=== PATIENT | female | born 1965 | race Caucasian/White ===

== ENCOUNTER 2018-11-04 18:30 | Inpatient (IN) | payer OTHER ==
[~2018-11-04] VITALS: Ht 160 cm; Wt 105.2 kg
--- NOTE | 2018-11-04 18:53 | NUR ---
PT TO THE FLOOR VIA WHEELCHAIR AND ER STAFF.
[2018-11-04] MEDS ORDERED: POTASSIUM CHLO20 MEQ PO (19:03)
[2018-11-04] MEDS ORDERED: ALDACTONE100 MG PO (19:05)
[2018-11-04] MEDS ORDERED: SYNTHROID75 MCG PO (19:05)
[2018-11-04] MEDS ORDERED: VITAMIN D250000 UNIT PO (19:06)
[2018-11-04] MEDS ORDERED: CLARITIN 10 MG10 MG PO (19:08)
[2018-11-04] MEDS ORDERED: PRINZIDE 20/12.1 TA1 PO (19:08)
--- NOTE | 2018-11-04 19:47 | NUR ---
PATIENT ARRIVED TO FLOOR. PATIENT IS ALERT AND ORIENTED. SITTING UP IN CHAIR. AM SHIFT RN DOING QUICK START AND ATTEMPTING TO START IV. CALL LIGHT WITHIN REACH. WILL CPOC.
[2018-11-04 19:54] LABS: ALBUMIN 3.7 g/dL (3.4-5.0); BILIRUBIN - DIRECT 0.17 mg/dL (0.00-0.30); BILIRUBIN - INDIRECT 0.68 mg/dL (0.00-1.00); BILIRUBIN - TOTAL 0.85 mg/dL (0.2-1.3); PROTEIN - SERUM 6.9 g/dL (6.4-8.2)
--- NOTE | 2018-11-04 20:00 | NUR ---
IV STARTED RIGHT HAND.
[2018-11-04 21:07] VITALS: BP 115/87
[2018-11-04 23:22] LABS: APPEARANCE CLEAR (CLEAR); BILIRUBIN NEGATIVE (NEGATIVE); COLOR STRAW (YELLOW); GLUCOSE NEGATIVE (NEGATIVE); KETONE NEGATIVE (NEGATIVE); NITRITE NEGATIVE (NEGATIVE); PROTEIN NEGATIVE (NEGATIVE); SPECIFIC GRAVITY 1.005 (1.005-1.020); UROBILINOGEN NORMAL (NORMAL)
[2018-11-05] VITALS (8 sets, daily range): BP systolic 82–118; BP diastolic 53–82; BMI 31.9
[2018-11-05 06:23] LABS: HEMATOCRIT 37.8 % (36.0-48.0); HEMOGLOBIN 13.6 g/dL (12-16); LYMPHOCYTES 28.4 % (15-50); MCH 29.7 pg (26.0-34.0); MCV 82.5 fL (80.0-100.0); MEAN PLATELET VOLUME 10.1 fL (7.4-10.4); NEUTROPHILS 59.8 % (40-80); PLATELET COUNT 207 10x3/uL (130-400); RBC 4.58 10x6/uL (4.00-5.40); RDW 12.9 % (11.5-14.5); WBC 9.9 10x3/uL (4.8-10.8)
[2018-11-05 06:39] LABS: ANION GAP 13.8 mmol/L (8-16); CALCIUM 8.9 mg/dL (8.5-10.1); CARBON DIOXIDE 25.9 mmol/L (21.0-32.0); CREATININE - SERUM 0.9 mg/dL (0.6-1.3); POTASSIUM - SERUM 3.7 mmol/L (3.5-5.1)
--- NOTE | 2018-11-05 11:57 | NUR ---
UP SOB WITH CALL LIGHT IN REACH. IV PATENT. WILL CONT. PLAN OF CARE.
--- NOTE | 2018-11-05 14:05 | NUR ---
PT TOOK SHOWER WITH NO ASSISTANCE NEEDED.
--- NOTE | 2018-11-05 15:00 | NUR ---
PT'S BP 82/53. GAVE PT X2 COKE'S TO DRINK. PT ALREADY RECEIVING NS AT 75.
--- NOTE | 2018-11-05 16:58 | NUR ---
RECHECKED BP 88/57. SPOKE WITH DR. BASURTO AND HE STATED GIVE 250 OF NS.
--- NOTE | 2018-11-05 19:30 | NUR ---
RESUMING PATIENT CARE. PATIENT ALERT AND ORIENTED. RESPIRATIONS ARE EVEN AND UNLABORED. NO S/S OF DISTRESS. NO C/O PAIN. PATIENT EXPRESSED NO NEEDS A THIS TIME. PATIENT BOARD UPDATED. CALL LIGHT WITHIN REACH. FAMILY AT BEDSIDE. WILL CPOC.
[2018-11-06] VITALS: BP 121/70
--- NOTE | 2018-11-06 03:10 | NUR ---
PATIENT REQUESTED ZOFRAN FOR NAUSEA, WHICH WAS GIVEN. DAUGHTER COMCERNED THAT PATIENT WAS CONFUSED. ASSESSED PATIENT. PATIENT IS ALERT AND ORIENTED X 4. RESPIRATIONS ARE EVEN AND UNLABORED. VITALS ARE STABLE T 97.3 BP 126/80 P 79 O2 100 ON ROOM AIR. WHEN CONVERSATING WITH PATIENT. PATIENT APPEARS ANXIOUS AND JUMPS FROM ONE TOPIC TO THE NEXT AND ONLY REMEMBERS BITS AND PIECES OF PERVIOUS CONVERSATION. OTHER THAN BEING NAUSEOUS. PATIENT SEEMS FOCUSED ON WHETHER OR NOT SHE HAS SLEPT. CONTINUOUS ASKING DAUGHTER "DO YOU THINK I HAVE SLEPT?" SPOKE WITH CHARGE NURSE. NO S/S OF DISTRESS. ENCOURAGED PT TO GET SLEEP. CALL LIGHT IN REACH. PT WILL CALL FOR NEEDS. WILL CPOC
[2018-11-06 04:00] VITALS: BP 126/80
[2018-11-06 07:44] LABS: CALC OSMOLALITY 262 mosm/kg (275-300); CALCIUM 8.2 mg/dL (8.5-10.1); CARBON DIOXIDE 25.2 mmol/L (21.0-32.0); CHLORIDE - SERUM 95 mmol/L (98-107); CREATININE - SERUM 0.8 mg/dL (0.6-1.3); GLUCOSE 129 mg/dL (74-106); POTASSIUM - SERUM 3.7 mmol/L (3.5-5.1); SODIUM 129 mmol/L (136-145); UREA NITROGEN 17 mg/dL (7-18); eGFR NON AFRICAN AMERICAN 79 mL/min (90-120)
[2018-11-06 07:52] VITALS: BP 125/66
--- NOTE | 2018-11-06 10:19 | NUR ---
NIRALI NEEDS OR C/O AT THIS TIME. CALL LIGHT IN REACH. WILL MONITOR.
[2018-11-06 12:27] VITALS: Ht 160 cm; Wt 105.2 kg
[2018-11-06 14:01] VITALS: BP 106/65
[2018-11-06] MEDS ORDERED: PRINIVIL20 MG PO (14:04)
[2018-11-06] MEDS ORDERED: OMEPRAZOLE20 M1 PO (14:06)
[2018-11-06] MEDS ORDERED: ZOFRAN ODT4 MG/UDTAB PO (14:07)
--- NOTE | 2018-11-06 17:49 | MORECARE ---
CASE MANAGEMENT DISCHARGE SUMMARY PATIENT: CHRIS MCCLAIN S UNIT: [id number] ADM DATE: 11/05/18 AGE: 53 : 63 SEX: F ROOM/BED: D.2130 AUTHOR: REBECCA PHILLIPS PHYSICIAN: REFERRING PHYSICIAN: MILLIE BASURTO MD DATE OF SERVICE: 11/06/18 Discharge Plan Patient Name: CHRIS MCCLAIN Facility: [facility]:[place] : 1965 Planned Disposition: Home Anticipated Discharge Date: 11/06/18 Discharge Date: 11/06/2018 Expected LOS: 1 Initial Reviewer: [email or web address] Initial Review Date: 11/06/2018 Generated: 11/06/18 6:49 pm DCPIA - Discharge Planning Initial Assessment Updated by [email or web address]: Yannick Toney on 11/06/18 5:48 pm * Is the patient Alert and Oriented? Yes * How many steps to enter\exit or inside your home? NONE * PCP DR. BASURTO * Pharmacy [facility] [facility] * Preadmission Environment Home with Family * ADLs Independent * Equipment None * Other Equipment NO MEDICAL EQUIPMENT PROVIDER PREFERENCE * List name and contact numbers for known caregivers / representatives who currently or will assist patient after discharge: RANDY MCCLAIN, SPOUSE, * Verbal permission to speak to the caregivers and representatives has been obtained from the patient. Yes * Community resources currently utilized None * Please name any agencies selected above. NONE * Additional services required to return to the preadmission environment? No * Can the patient safely return to the preadmission environment? Yes * Has this patient been hospitalized within the prior 30 days at any hospital? No Patient Name: CHRIS MCCLAIN Page [id number] at 1749 All edits/amendments must be made on the electronic document DICTATION DATE: 11/06/181747 SUBSTATION OPERATOR AUTOMATIC: HERO 11/06/181747 RPT#: [id number] DC DATE:11/06/18 STATUS: DIS IN [facility] [address] [place] [address] END OF REPORT
--- NOTE | 2018-11-06 17:57 | MORECARE ---
CASE MANAGEMENT DISCHARGE SUMMARY PATIENT: CHRIS MCCLAIN UNIT: [id number] ADM DATE: 11/05/18 AGE: 53 : 63 SEX: F ROOM/BED: D.0706 AUTHOR: REBECCA PHILLIPS PHYSICIAN: REFERRING PHYSICIAN: MILLIE BASURTO MD DATE OF SERVICE: 11/06/18 Discharge Plan Patient Name: CHRIS MCCLAIN Facility: [facility]:[place] : 1965 Planned Disposition: Home Anticipated Discharge Date: 11/06/18 Discharge Date: 11/06/2018 Expected LOS: 1 Initial Reviewer: [email or web address] Initial Review Date: 11/06/2018 Generated: 11/06/18 6:57 pm Comments DCP- Discharge Planning Updated by [email or web address]: Yannick Toney on 11/06/18 4:[address] Patient Name: CHRIS MCCLAIN Admission Status: Elective Accout number: [id number] Admission Date: 11-05-2018 : 1965 Admission Diagnosis:NAUSEA WITH VOMITING, UNSPECIFIED Attending: MILLIE BASURTO Current LOS: 1 Anticipated DC Date: 11-06-2018 Planned Disposition: Home Primary Insurance: [employer]ANGE Discharge Planning Comments: CM MET WITH PT AND SPOUSE IN ROOM TO DISCUSS DISCHARGE PLANNING AND NEEDS. CHRIS MCCLAIN provided verbal consent to discuss current and ongoing needs with/in the presence of: SPOUSE, RANDY. PT REPORTS LIVING AT HOME INDEPENDENTLY WITH HER SPOUSE. PT HAS NO MEDICAL EQUIPMENT AND NO OUTSIDE SERVICES ASSISTING IN THE HOME. CM DISCUSSED AVAILABILITY OF HOME HEALTH, REHAB SERVICES AND MEDICAL EQUIPMENT. PT DENIES DISCHARGE NEEDS, REPORTS HER WILL PICK HER UP FOR DISCHARGE HOME. IMPORTANT MESSAGE FROM MEDICARE PROVIDED AND EXPLAINED. Continuous Process Tanner Rotary Drum: Yannick Toney DCPIA - Discharge Planning Initial Assessment Updated by [email or web address]: Yannick Toney on 11/06/18 5:48 pm * Is the patient Alert and Oriented? Yes * How many steps to enter\exit or inside your home? NONE * PCP DR. BASURTO * [facility]acy [facility] [address] * Preadmission Environment Home with Family * ADLs Independent * Equipment None * Other Equipment NO MEDICAL EQUIPMENT PROVIDER PREFERENCE * List name and contact numbers for known caregivers / representatives who currently or will assist patient after discharge: RANDY MCCLAIN, SPOUSE, * Verbal permission to speak to the caregivers and representatives has been obtained from the patient. Yes * Community resources currently utilized None * Please name any agencies selected above. NONE * Additional services required to return to the preadmission environment? No * Can the patient safely return to the preadmission environment? Yes * Has this patient been hospitalized within the prior 30 days at any hospital? No Last DP export: 11/06/18 4:49 p Patient Name: CHRIS MCCLAIN Page [id number] at 1757 All edits/amendments must be made on the electronic document DICTATION DATE: 11/06/181755 ACID DIPPER: HERO 11/06/181755 RPT#: [id number] DC DATE:11/06/18 STATUS: DIS IN [facility] [address] [place] [address] END OF REPORT
== END 2018-11-06 16:42 | disposition home or self-care (01) | DRG 641 ==
LOC: D.M2 18:30 → OBSVTIME 18:30 → D.M2 11-05 14:05
PROVIDERS: Family Medicine; ADMIT Family Medicine
DX: E87.1 Hypo-osmolality and hyponatremia (principal); D72.829 Elevated white blood cell count, unspecified; R42 Dizziness and giddiness; I10 Essential (primary) hypertension

== ENCOUNTER → 2019-02-25 16:39 | Outpatient (CLI) | payer OTHER ==
[2018-11-06 12:27] VITALS: BMI 41.1
[~2019-02-25 16:39] MED LIST: ALDACTONE100 MG PO; CLARITIN 10 MG10 MG PO; OMEPRAZOLE20 M1 PO; POTASSIUM CHLO20 MEQ PO; PRINIVIL20 MG PO; PRINZIDE 20/12.1 TA1 PO; SYNTHROID75 MCG PO; VITAMIN D250000 UNIT PO; ZOFRAN ODT4 MG/UDTAB PO
== END | disposition home or self-care (01) ==
LOC: D.MAMMO 13:15
PROVIDERS: ATTEND Family Medicine
DX: Z12.31 Encounter for screening mammogram for malignant neoplasm of breast (principal)

== ENCOUNTER → 2020-08-16 13:30 | Outpatient (CLI) | payer OTHER ==
[2018-11-06 12:27] VITALS: BMI 41.1
== END | disposition home or self-care (01) ==
LOC: D.MAMMO 13:30
PROVIDERS: ATTEND Family Medicine
DX: Z12.31 Encounter for screening mammogram for malignant neoplasm of breast (principal)